=== PATIENT | male | born 1970 | race Caucasian/White ===

== ENCOUNTER 2022-10-09 14:15 | Day surgery (SDC) | payer OTHER ==
[~2022-10-09] VITALS: Ht 182.9 cm; Wt 102.6 kg
[2022-10-09 15:51] VITALS: BP 123/91
== END 2022-10-09 16:14 | disposition home or self-care (01) ==
LOC: ORSCSDS 14:15
PROVIDERS: Ophthalmology
PROC: 08DJ3ZZ Extraction of Right Lens, Percutaneous Approach (ICD-10-PCS; principal; 2022-10-09 15:30)
DX: H25.11 Age-related nuclear cataract, right eye (principal); I10 Essential (primary) hypertension
CPT/HCPCS: J2250; J3010; J3301; J7040; V2632

== ENCOUNTER 2023-03-01 13:17 | Day surgery (SDC) | payer OTHER ==
[~2023-03-01] VITALS: Ht 182.9 cm; Wt 99.1 kg
[2023-03-01 15:20] VITALS: BP 135/101
== END 2023-03-01 15:15 | disposition home or self-care (01) ==
LOC: ORSCSDS 13:17
PROVIDERS: Internal Medicine Gastroenterology
PROC: 0DBP8ZX Excision of Rectum, Via Natural or Artificial Opening Endoscopic, Diagnostic (ICD-10-PCS; principal; 2023-03-01 14:45)
PROC: 0DBK8ZX Excision of Ascending Colon, Via Natural or Artificial Opening Endoscopic, Diagnostic (ICD-10-PCS; principal; 2023-03-01 14:45)
PROC: 0DBM8ZX Excision of Descending Colon, Via Natural or Artificial Opening Endoscopic, Diagnostic (ICD-10-PCS; principal; 2023-03-01 14:45)
DX: K62.5 Hemorrhage of anus and rectum (principal); D12.2 Benign neoplasm of ascending colon; D12.4 Benign neoplasm of descending colon; K62.1 Rectal polyp; K57.30 Diverticulosis of large intestine without perforation or abscess without bleeding; K64.8 Other hemorrhoids; R74.01 Elevation of levels of liver transaminase levels; F17.210 Nicotine dependence, cigarettes, uncomplicated; Z79.899 Other long term (current) drug therapy
CPT/HCPCS: 88305; J2704; J7120

== ENCOUNTER → 2023-03-01 | Outpatient (CLI) | payer OTHER ==
[2023-03-08 08:12] LABS: COTININE Negative ng/mL (Cutoff=300)
== END ==
LOC: LAB 11:06 → LAB SHORT 11:06
PROVIDERS: Family Medicine
DX: Z01.812 Encounter for preprocedural laboratory examination (principal)

== ENCOUNTER 2023-06-03 06:15 | Day surgery (SDC) | payer OTHER ==
[~2023-06-03] VITALS: Ht 182.9 cm; Wt 101.1 kg
[~2023-06-03 06:15] MED LIST: ACET325; CYCL10; ERGO50000; IBUP800; OMEGA-3 FISH O1 EAC6; Vitamin C100 MG; [UNRECOGNIZED DRUG - OTHER]
--- NOTE | 2023-06-03 06:58 | NUR ---
06/03/23 0658 MILTON JOSÉ KNEE HIGH VINICIUS HOSJina PUT ON PT /SCD-THIGH HIGH
--- NOTE | 2023-06-03 08:28 | NUR ---
06/03/23 0828 Merle Santos PT POPSITIONED ON BED GEL COVERED JONES BAG. GEL UNDER AND IN BETWEEN HEELS AND UNDER SEAT BELTS. PILLOW UNDER HEAD AND IN BETWEEN KNEES. RIGHT ARM SECURED ON PADDED ARM BOARD. PT SECURED WITH 2 SEAT BELTS. POSITIONE VERIFIED BY PHYSICIANS.
[2023-06-03 10:14] VITALS: BP 132/93
--- NOTE | 2023-06-03 11:18 | NUR ---
06/03/23 1118 Kan Chew IV REMOVED INTACT. SITE WNL. PT REPORTED MILD NAUSEA PRIOR TO D/C BUT EXPRESSED READINESS TO RETURN HOME. HE DECLINED IV NAUSEA MEDICATION. P/T CALM, TALKATIVE, AND RELAXED UPON D/C/ FLACC 0/10. PT PROVIDED ALCOHOL SWABS AND INSTRUCTED IN HOW TO USE THEM. P/T FREQUENTLY MOVING ARM IN SDU. B/P WAS WITHIN 20% OF BASELINE WHENEVER PT HELD ARM STILL.
== END 2023-06-03 11:15 | disposition home or self-care (01) ==
LOC: ORSCSDS 06:15
PROVIDERS: Orthopaedic Surgery
PROC: 0RNK4ZZ Release Left Shoulder Joint, Percutaneous Endoscopic Approach (ICD-10-PCS; principal; 2023-06-03 07:30)
PROC: 0LM24ZZ Reattachment of Left Shoulder Tendon, Percutaneous Endoscopic Approach (ICD-10-PCS; principal; 2023-06-03 07:30)
DX: M75.122 Complete rotator cuff tear or rupture of left shoulder, not specified as traumatic (principal); M75.42 Impingement syndrome of left shoulder; Z87.891 Personal history of nicotine dependence
CPT/HCPCS: C1713; J0171; J0690; J1100; J1885; J2250; J2405; J2704; J3010; J7120